=== PATIENT | male | born 1995 ===

== ENCOUNTER 2016-12-28 10:09 | Emergency (ER) | payer MEDICAID, OTHER ==
--- NOTE | 2016-12-28 10:48 | ED PDOC ---
HPI: General Adult Time Seen by Provider: 12/28/16 10:38 Chief Complaint (Nursing): Fever Chief Complaint (Provider): fever History Per: Patient Additional Complaint(s): 21-year-old male with no past medical history presents to emergency department with cough that started 3 days ago. Patient states that he noticed fever as of yesterday and today he had 2 episodes of vomiting and watery, nonbloody diarrhea. Patient has slight throat discomfort and states that cough is productive of yellow and green sputum. He has slight generalized abdominal discomfort. Patient has been able to tolerate water since emesis earlier today. He denies recent travel and he denies any known sick contacts. Past Medical History Reviewed: Historical Data, Nursing Documentation, Vital Signs Vital Signs: Last Vital Signs Temp 99.3 F 12/28/16 13:03 Pulse 80 12/28/16 13:03 Resp 19 12/28/16 13:03 BP 128/78 12/28/16 13:03 Pulse Ox 98 12/28/16 13:03 - Medical History PMH: Bronchitis, HIV (2012), Seizures (as a child) - Surgical History Surgical History: No Surg Hx - Family History Family History: States: No Known Family Hx - Living Arrangements Living Arrangements: With Family - Social History Current smoker - smoking cessation education provided: Yes Alcohol: Social Drugs: Denies - Home Medications Home Medications: Ambulatory Orders Medication Instructions Recorded Dolutegravir Sodium 1 tab PO DAILY 07/02/16 Truvada 100 mg-150 mg Tablet 1 tab PO DAILY 07/02/16 traMADol 50 mg PO Q4H 07/02/16 Cephalexin [cephalexin] 500 mg PO QID #20 cap 08/05/16 Albuterol HFA [Ventolin HFA 90 1 puff IH ASDIR #1 unit 12/28/16 mcg/actuation (8 g)] Azithromycin [Zithromax] 250 mg PO DAILY #6 tab 12/28/16 Benzonatate 200 mg PO TID PRN #20 capsule 12/28/16 Ondansetron [Zofran Odt] 4 mg PO ASDIR PRN #8 odt 12/28/16 - Allergies Allergies/Adverse Reactions: Allergies Allergy/AdvReac Type Severity Reaction Status Date / Time aspirin Allergy RASH Verified 12/28/16 10:31 shellfish Allergy PAIN Uncoded 12/28/16 10:31 Review of Systems ROS Statement: Except As Marked, All Systems Reviewed And Found Negative Constitutional: Positive for: Fever, Other (body aches) ENT: Positive for: Throat Pain Cardiovascular: Negative for: Chest Pain Respiratory: Positive for: Cough, Sputum (yellow and green) Gastrointestinal: Positive for: Nausea, Vomiting, Abdominal Pain, Diarrhea Neurological: Negative for: Headache, Dizziness Physical Exam - Reviewed Nursing Documentation Reviewed: Yes Vital Signs Reviewed: Yes - Physical Exam Appears: Positive for: Well, Non-toxic, No Acute Distress Head Exam: Positive for: ATRAUMATIC, NORMAL INSPECTION Skin: Positive for: Normal Color. Negative for: Rash Eye Exam: Positive for: Normal appearance, EOMI, PERRL ENT: Positive for: Nasal Congestion, Pharyngeal Erythema, Tonsillar Swelling. Negative for: Tonsillar Exudate Neck: Positive for: Normal Cardiovascular/Chest: Positive for: Regular Rate, Rhythm Respiratory: Positive for: Rhonchi. Negative for: Respiratory Distress Gastrointestinal/Abdominal: Positive for: Bowel Sounds (normoactive in all 4 quadrants), Soft. Negative for: Tenderness, Distended, Guarding, Rebound Back: Negative for: L CVA Tenderness, R CVA Tenderness Extremity: Positive for: Normal ROM Neurologic/Psych: Positive for: Alert, Oriented - Laboratory Results Result Diagrams: 12/28/16 11:15 12/28/16 11:15 - ECG O2 Sat by Pulse Oximetry: 99 Pulse Ox Interpretation: Normal - Other Rad CXR X-Ray: Interpreted by Me, Viewed By Me X-Ray Interpretation: no acute finding Medical Decision Making Medical Decision Makin21 year old with fever, cough, vomiting and diarrhea Plan: Blood culture CBC CMP Lipase Urine dip VBG with lactate CXR Rapid strep and throat culture IVF IV zofran PO tylenol and motrin Patient feels much better after meds were administered in ED. He is tolerated liquids with no further emesis. Patient is aware of all diagnostic testing results. All questions answered. Patient given prescriptions for Tessalon Perles , Zithromax and Ventolin inhaler. Prescription also given for Zofran. Patient was advised to continue with Tylenol and Motrin as needed for fever and to rest and drink plenty of fluids. He was advised to follow up with primary doctor in 1 -2 days and is aware he can return to ED if acutely worse at any time. Repeat VS prior to d/c Temp: 99.3 HR: 80 BP: 128/78 RR: 19 O2: 98 Disposition - Clinical Impression Clinical Impression: Bronchitis - Patient ED Disposition Is Patient to be Admitted: No - Disposition Referrals: Alex Burton DO [Primary Care Provider] - Disposition: Routine/Home Disposition Time: 12:31 Condition: STABLE Additional Instructions: Take prescription meds as directed. Continue with Tylenol and Motrin as needed for fever. Rest and drink plenty of fluids. Follow up with primary doctor in 1- 2 days. Return any time if acutely worse. Prescriptions: Albuterol HFA [Ventolin HFA 90 mcg/actuation (8 g)] 1 puff IH ASDIR #1 unit Azithromycin [Zithromax] 250 mg PO DAILY #6 tab Benzonatate 200 mg PO TID PRN #20 capsule PRN Reason: Cough Ondansetron [Zofran Odt] 4 mg PO ASDIR PRN #8 odt PRN Reason: Nausea/Vomiting Instructions: Acute Bronchitis (ED) Forms: [employer] ([place]), [facility] ED School/Work Excuse Results - Lab Results Lab Results: 12/28/16 12/28/16 12/28/16 12:01 11:15 11:15 WBC RBC Hgb Hct MCV MCH MCHC RDW Plt Count MPV Neut % (Auto) Lymph % (Auto) [place] % (Auto) Eos % (Auto) Baso % (Auto) Neut # Lymph # [place] # Eos # Baso # pO2 57 H VBG pH 7.42 VBG pCO2 39 L VBG HCO3 25.3 VBG Total CO2 26.5 VBG O2 Sat (Calc) 94.4 H VBG Base Excess 0.8 VBG Potassium 3.8 Glucose 100 Lactate 0.7 FiO2 21.0 Sodium 134.0 Potassium Chloride 104.0 Carbon Dioxide Anion Gap BUN Creatinine Est GFR ( Amer) Est GFR (Non-Af Amer) Random Glucose Calcium Total Bilirubin AST ALT Alkaline Phosphatase Total Protein Albumin Globulin Albumin/Globulin Ratio Lipase Venous Blood Potassium 3.8 Influenza Typ A,B (EIA) Negative for flu a/b Grp A Beta Strep Ag Negative 12/28/16 12/28/16 11:15 11:15 WBC 5.4 RBC 4.91 Hgb 14.4 Hct 42.9 MCV 87.4 MCH 29.3 MCHC 33.5 RDW 13.3 Plt Count 204 MPV 9.2 Neut % (Auto) 69.5 Lymph % (Auto) 19.2 L [place] % (Auto) 10.5 H Eos % (Auto) 0.1 Baso % (Auto) 0.7 Neut # 3.7 Lymph # 1.0 [place] # 0.6 Eos # 0.0 Baso # 0.0 pO2 VBG pH VBG pCO2 VBG HCO3 VBG Total CO2 VBG O2 Sat (Calc) VBG Base Excess VBG Potassium Glucose Lactate FiO2 Sodium 136 Potassium 4.2 Chloride 103 Carbon Dioxide 23 Anion Gap 15 BUN 9 Creatinine 0.8 Est GFR ( Amer) > 60 Est GFR (Non-Af Amer) > 60 Random Glucose 99 Calcium 9.0 Total Bilirubin 0.5 AST 25 ALT 24 Alkaline Phosphatase 60 Total Protein 8.1 Albumin 4.5 Globulin 3.6 Albumin/Globulin Ratio 1.2 Lipase 69 Venous Blood Potassium Influenza Typ A,B (EIA) Grp A Beta Strep Ag
[2016-12-28] MEDS: Sodium Chloride 0.9% 1,000 ML IV STA (11:22)
[2016-12-28 11:27] LABS: BASO % 0.7 % (0.0-2.0); EOS % 0.1 % (0.0-4.0); HEMATOCRIT 42.9 % (35.0-51.0); LYMPH % 19.2 % (20.0-40.0); MEAN CELL VOLUME 87.4 fl (80.0-94.0); MEAN CORPUSCULAR HEMOGLOBIN 29.3 pg (27.0-31.0); MEAN CORPUSCULAR HGB CONC 33.5 g/dL (33.0-37.0); MEAN PLATELET VOLUME 9.2 fl (7.2-11.7); MONO # 0.6 K/uL (0.0-0.8); MONO % 10.5 % (0.0-10.0); NEUT # 3.7 K/uL (1.8-7.0); NEUT % 69.5 % (50.0-75.0); NRBC % 0.1 % (0.0-0.0); RED CELL DISTRIBUTION WIDTH 13.3 % (11.5-14.5); WHITE BLOOD COUNT 5.4 K/uL (4.8-10.8)
[2016-12-28 11:40] LABS: ALB/GLOB RATIO 1.2 (1.0-2.1); ALKALINE PHOSPHATASE 60 U/L (38-126); ALT/SGPT 24 U/L (21-72); AST/SGOT 25 U/L (17-59); BILIRUBIN,TOTAL 0.5 mg/dl (0.2-1.3); BLOOD UREA NITROGEN 9 mg/dl (9-20); CARBON DIOXIDE 23 mmol/L (22-30); CHLORIDE 103 mmol/L (98-107); GFR AFRICAN-AMERICAN > 60; GLUCOSE,RANDOM 99 mg/dL (75-110); LIPASE 69 U/L (23-300); POTASSIUM 4.2 MMOL/L (3.6-5.0); SODIUM 136 mmol/l (132-148); TOTAL PROTEIN 8.1 G/DL (6.3-8.2)
[2016-12-28 12:12] LABS: VENOUS BLOOD GAS BASE EXCESS 0.8 mmol/L (0.0-2.0); VENOUS BLOOD GAS PCO2 39 mmHg (40-60); VENOUS BLOOD PH 7.42 (7.32-7.43)
[2016-12-28 13:04] VITALS: BP 128/78; PULSE 80; RESP 19; TEMP 99.3
[2016-12-28 13:41] VITALS: O2SAT 99
== END 2016-12-28 13:04 | disposition home or self-care (01) ==
LOC: H.ER 10:09
DX: J40 Bronchitis, not specified as acute or chronic (principal)
CPT/HCPCS: 71020; 80053; 82803; 83690; 85025; 87040; 87070; 87430; 87804; 96374; 99282; J2405; J7040